=== PATIENT | male | born 1955 | race Caucasian/White ===

== ENCOUNTER 2023-03-17 08:35 | Outpatient (CLI) | payer BC ==
[2023-03-17] MEDS ORDERED: Iopamidol 370 76% 100 ML VIAL ONE (13:49)
== END 2023-03-17 08:36 | disposition home or self-care (01) ==
LOC: CT 08:35
PROVIDERS: ATTEND Internal Medicine
DX: D49.6 Neoplasm of unspecified behavior of brain (principal); C79.9 Secondary malignant neoplasm of unspecified site; R91.8 Other nonspecific abnormal finding of lung field; R93.2 Abnormal findings on diagnostic imaging of liver and biliary tract; M89.9 Disorder of bone, unspecified
CPT/HCPCS: 71260; 74177; Q9967

== ENCOUNTER 2023-06-23 07:24 | Outpatient (CLI) | payer MEDICARE, OTHER | END 2023-06-23 07:25 | disposition home or self-care (01) | LOC: MRI 07:24 | PROVIDERS: ATTEND Radiology Radiation Oncology | DX: C71.8 Malignant neoplasm of overlapping sites of brain (principal); G93.6 Cerebral edema; Z98.890 Other specified postprocedural states | CPT/HCPCS: 70553 ==

== ENCOUNTER 2023-09-05 14:54 | Outpatient (CLI) | payer MEDICARE, OTHER ==
[~2023-09-05 14:54] MED LIST: Magnevist 469MG/ML 20 ML VIAL ONE
== END 2023-09-05 14:55 | disposition home or self-care (01) ==
LOC: MRI 14:54
PROVIDERS: ATTEND Internal Medicine Hematology & Oncology
DX: C71.1 Malignant neoplasm of frontal lobe (principal); D49.6 Neoplasm of unspecified behavior of brain; D49.2 Neoplasm of unspecified behavior of bone, soft tissue, and skin; H53.132 Sudden visual loss, left eye; R60.0 Localized edema; D65 Disseminated intravascular coagulation [defibrination syndrome]
CPT/HCPCS: 70553; 80053; 85610; 85730; 86140; A9579